=== PATIENT | female | born 2000 | race Two or more races ===

== ENCOUNTER 2018-08-22 18:30 | Emergency (ER) | payer OTHER ==
--- NOTE | 2018-08-22 20:07 | EKG REPORT ---
SEVERITY:- ABNORMAL ECG - SINUS RHYTHM NONSPECIFIC T ABNORMALITIES, INFERIOR LEADS : Confirmed by: Jessica Tran MD 22-Aug-2018 20:07:22
[2018-08-22] MEDS ORDERED: METOCLOPRAMIDE HCL 10 MG TABLET PO ONE (20:12)
--- NOTE | 2018-08-22 20:17 | ER Document Report ---
ED Medical Screen (RME) - General Chief Complaint: Palpitations Stated Complaint: RAPID HEART RATE Time Seen by Provider: 08/22/18 20:06 Mode of Arrival: Ambulatory Information source: Patient Notes: Patient presents emergency department with reports that she is 8 weeks . Patient reports she has been vomiting the entire time takes likely just but it is not helping her. She reports this afternoon she experienced a very fast heart rate up to 172 became lightheaded and her legs felt numb. Patient reports she still having the numbness in her legs and lightheadedness heart rate is 72. Denies chest pain. Denies diarrhea. at her side reports patient barely drinks a bottle of water a day because she is always vomiting. Patient also complains of abdominal cramping. No complaints of vaginal bleed. I have greeted and performed a rapid initial assessment of this patient. A comprehensive ED assessment and evaluation of the patient, analysis of test results and completion of the medical decision making process will be conducted by additional ED providers. Dictation of this chart was performed using voice recognition software; therefore, there may be some unintended grammatical errors. TRAVEL OUTSIDE OF THE [place] IN LAST 30 DAYS: No - Related Data Allergies/Adverse Reactions: morphine Adverse Reaction (Verified 08/22/18 18:33) Past Medical History - Social History Chew tobacco use (# tins/day): No Frequency of alcohol use: None Drug Abuse: None Renal/ Medical History: Denies: Hx Peritoneal Dialysis Physical Exam - Vital signs Vitals: Temp Pulse Resp BP Pulse Ox 99.4 F 77 18 122/66 99 08/22/18 18:45 08/22/18 18:45 08/22/18 18:45 08/22/18 18:45 08/22/18 18:45 Course - Vital Signs Vital signs: Temp Pulse Resp BP Pulse Ox 99.4 F 77 18 122/66 99 08/22/18 18:45 08/22/18 18:45 08/22/18 18:45 08/22/18 18:45 08/22/18 18:45
--- NOTE | 2018-08-22 21:52 | RADIOLOGY REPORT (SQ) ---
US PELVIS HISTORY: Early . Pelvic pain. COMPARISON: None. TECHNIQUE: Grayscale, color Doppler, and spectral Doppler ultrasound images of the pelvis were obtained. FINDINGS: There is an intrauterine gestational sac with a yolk sac and pole visualized. The crown-rump length is 1.86 cm corresponding to 8 days of . The heart rate is 168 bpm. There is a possible adjacent subchorionic hemorrhage measuring 1.4 x 2.0 x 1.4 cm. The cervix measures 2.2 cm in length. Both ovaries are normal with the right measuring 2.1 x 2.8 x 2.0 cm and the left measuring 2.8 x 2.6 x 1.8 cm. Query 1.8 cm left ovarian corpus luteum cyst. No pelvic free fluid. IMPRESSION: 1. Single live IUP with estimated gestational age 8 weeks 3 days. 2. Small adjacent subchronic hemorrhage; attention on follow-up imaging is suggested.
[2018-08-22 21:56] LABS: ABSOLUTE BASOPHILS # (AUTO) 0.1 10^3/uL (0.0-0.2); ABSOLUTE LYMPHOCYTES (AUTO) 1.4 10^3/uL (0.5-4.7); ABSOLUTE MONOCYTES (AUTO) 0.5 10^3/uL (0.1-1.4); BASOPHILS % (AUTO) 0.8 % (0-2); EOSINOPHILS % (AUTO) 0.4 % (0-6); HEMATOCRIT 39.7 % (36.0-47.0); HEMOGLOBIN 13.8 g/dL (12.0-15.5); LYMPHOCYTES % (AUTO) 16.9 % (13-45); MEAN CORPUSCULAR HEMOGLOBIN 30.1 pg (27.0-33.4); MEAN CORPUSCULAR HGB CONC 34.7 g/dL (32.0-36.0); MEAN CORPUSCULAR VOLUME 87 fl (80-97); MONOCYTES % (AUTO) 6.6 % (3-13); PLATELET COUNT 229 10^3/uL (150-450); RED BLOOD COUNT 4.58 10^6/uL (3.72-5.28); RED CELL DISTRIBUTION WIDTH 13.5 % (11.5-14.0); SEGMENTED NEUTROPHILS % (AUTO) 75.3 % (42-78); TOTAL CELLS COUNTED % (AUTO) 100 %
[2018-08-22 22:20] LABS: ALANINE AMINOTRANSFERASE 31 U/L (9-52); ALBUMIN 4.5 g/dL (3.5-5.0); ALKALINE PHOSPHATASE 39 U/L (38-126); ANION GAP 10 (5-19); ASPARTATE AMINO TRANSFERASE 20 U/L (14-36); BILIRUBIN,DIRECT 0.2 mg/dL (0.0-0.4); BILIRUBIN,TOTAL 0.8 mg/dL (0.2-1.3); BLOOD UREA NITROGEN 7 mg/dL (7-20); CALCIUM 9.8 mg/dL (8.4-10.2); CARBON DIOXIDE 25 mmol/L (22-30); CHLORIDE 103 mmol/L (98-107); GLUCOSE 84 mg/dL (75-110); POTASSIUM 4.4 mmol/L (3.6-5.0); SODIUM 137.7 mmol/L (137-145); TOTAL PROTEIN 7.2 g/dL (6.3-8.2)
[2018-08-22 23:49] LABS: APPEARANCE,URINE CLOUDY; BILIRUBIN,URINE NEGATIVE (NEGATIVE); COLOR,URINE YELLOW; GLUCOSE, URINE NEGATIVE (NEGATIVE); KETONES,URINE 20 mg/dL (NEGATIVE); LEUKOCYTE ESTERASE,URINE NEGATIVE (NEGATIVE); NITRITE,URINE NEGATIVE (NEGATIVE); PROTEIN,URINE NEGATIVE (NEGATIVE)
--- NOTE | 2018-08-23 00:59 | ER Document Report ---
ED General - General Chief Complaint: Palpitations Stated Complaint: RAPID HEART RATE Time Seen by Provider: 08/22/18 20:06 Mode of Arrival: Ambulatory Notes: Patient is a 18-year-old female G1, P0 who presents with palpitations and an episode of lightheadedness that occurred shortly prior to arrival. Symptoms were abrupt in onset, regards it is being severe when present. Did resolve spontaneously. No obvious triggering factor. The patient states that she has had nausea and vomiting in the setting of and has been unable to eat or drink much of anything. She does attribute this to causing her symptoms. She states that since arriving here in the emergency department the above symptoms of palpitations and lightheadedness have completely resolved. States that she did have some mild, cramping lower abdominal discomfort which is likewise resolved. Denies any vaginal bleeding or discharge. No dysuria. No history of similar symptoms during this . Has not seen her [employer] SERVICE [employer] regarding today's concerns. Denies fever. No trauma to the abdomen. No short of breath or chest pain at any time. TRAVEL OUTSIDE OF THE [place] IN LAST 30 DAYS: No - Related Data Allergies/Adverse Reactions: morphine Adverse Reaction (Verified 08/22/18 18:33) Past Medical History - General Information source: Patient - Social History Smoking Status: Never Smoker Chew tobacco use (# tins/day): No Frequency of alcohol use: None Drug Abuse: None Lives with: Spouse/Significant other Family History: Reviewed & Not Pertinent Patient has suicidal ideation: No Patient has homicidal ideation: No Renal/ Medical History: Denies: Hx Peritoneal Dialysis Review of Systems - Review of Systems Notes: Constitutional: Negative for fever. HENT: Negative for sore throat. Eyes: Negative for visual changes. Cardiovascular: Negative for chest pain. Positive for palpitations Respiratory: Negative for shortness of breath. Gastrointestinal: Positive for lower abdominal cramping Genitourinary: Negative for dysuria. Musculoskeletal: Negative for back pain. Skin: Negative for rash. Neurological: Negative for headaches, weakness or numbness. 10 point ROS negative except as marked above and in HPI. Physical Exam - Vital signs Vitals: Temp Pulse Resp BP Pulse Ox 99.4 F 77 18 122/66 99 08/22/18 18:45 08/22/18 18:45 08/22/18 18:45 08/22/18 18:45 08/22/18 18:45 Interpretation: Normal Notes: PHYSICAL EXAMINATION: GENERAL: Well-appearing, well-nourished and in no acute distress. HEAD: Atraumatic, normocephalic. EYES: Pupils equal round and reactive to light, extraocular movements intact, sclera anicteric, conjunctiva are normal. ENT: nares patent, oropharynx clear without exudates. Moist mucous membranes. NECK: Normal range of motion, supple without lymphadenopathy LUNGS: Breath sounds clear to auscultation bilaterally and equal. No wheezes rales or rhonchi. HEART: Regular rate and rhythm without murmurs ABDOMEN: Soft, nontender, normoactive bowel sounds. No guarding, no rebound. No masses appreciated. EXTREMITIES: Normal range of motion, no pitting or edema. No cyanosis. NEUROLOGICAL: No focal neurological deficits. Moves all extremities spontaneously and on command. PSYCH: Normal mood, normal affect. SKIN: Warm, Dry, normal turgor, no rashes or lesions noted. Course - Re-evaluation Re-evalutation: 08/23/18 00:58 Patient presents with persistent vomiting during . Patient also states that she had some lightheadedness and palpitations earlier now which have resolved. EKG unremarkable. Vitals at time of arrival unremarkable without tachycardia or hypotension. Laboratories reveal a normal creatinine and no evidence of significant dehydration. Patient was able to tolerate oral intake here in the emergency department. Transvaginal ultrasound shows a viable intrauterine with a small subchorionic hemorrhage. This finding was disclosed to the patient and her . No vaginal bleeding or discharge. Based on abdominal exam, vitals and history I do not suspect an acute appendicitis, cholestasis of , acute cholecystitis, pancreatitis, or bowel obstruction. At this time will discharge with return precautions and follow-up recommendations. Verbal discharge instructions given a the bedside and opportunity for questions given. Medication warnings reviewed. Patient is in agreement with this plan and has verbalized understanding of return precautions and the need for primary care follow-up in the next 24-72 hours. - Vital Signs Vital signs: Temp Pulse Resp BP Pulse Ox 99.0 F 78 18 118/68 99 08/23/18 01:17 08/23/18 01:17 08/23/18 01:17 08/23/18 01:17 08/23/18 01:17 - Laboratory Result Diagrams: 08/22/18 21:43 08/22/18 21:43 Laboratory results interpreted by me: 08/22/18 08/22/18 21:20 21:43 Creatinine 0.49 L Beta HCG, Quant 473504.00 H Urine Ketones 20 H Urine Urobilinogen 4.0 H - Diagnostic Test Radiology reviewed: Reports reviewed - EKG Interpretation by Me Additional EKG results interpreted by me: 08/23/18 04:13 Sinus rhythm, rate 88. No ST elevations or depressions. QTC is 436. Discharge - Discharge Clinical Impression: Palpitations, Nausea and vomiting during , First trimester , Lightheadedness Condition: Good Disposition: HOME, SELF-CARE Additional Instructions: You have been seen for vomiting during . Your ultrasound looks normal today with the exception of a small subchorionic hemorrhage as we discussed. You should continue to drink plenty of water and consider taking a solution such as Pedialyte if your having difficulty eating food. Please return if you become unable to drink any fluids for more than 12 hours, urinate less than twice a day, pass out, or have any other symptoms that are concerning to you.
[2018-08-23 01:18] VITALS: BP 118/68
== END 2018-08-23 01:18 | disposition home or self-care (01) ==
LOC: ER 18:30
DX: O26.891 Other specified pregnancy related conditions, first trimester (principal); R00.2 Palpitations; R42 Dizziness and giddiness; R10.30 Lower abdominal pain, unspecified; O21.9 Vomiting of pregnancy, unspecified; O20.8 Other hemorrhage in early pregnancy; Z3A.00 Weeks of gestation of pregnancy not specified
CPT/HCPCS: 36415; 76817; 80053; 81001; 84702; 85025; 93005; 93010; 99285